=== PATIENT | female | born 1960 ===

== ENCOUNTER 2023-09-06 08:00 | Outpatient (CLI) | payer OTHER | END 2023-09-06 23:59 | disposition home or self-care (01) | LOC: LAB.N 08:00 | PROVIDERS: ATTEND Family Medicine | DX: R30.0 Dysuria (principal) | CPT/HCPCS: 87086; 87181 ==

== ENCOUNTER 2024-03-21 14:11 | Outpatient (CLI) | payer OTHER ==
--- NOTE | 2024-03-21 16:34 | XRAY Report ---
PROCEDURE: Finger(s) RT INDICATIONS: RIGHT FINGER PAIN TECHNIQUE: AP hand, 2 views of the 4th finger(s) acquired. COMPARISON: None. FINDINGS: No acute fracture or dislocation, specifically of the 4th finger distal phalanx. The joint spaces are preserved. IMPRESSION: No acute fracture or dislocation of the right 4th finger. Reviewed by: Zafar Huertas MD on 03/21/2024 4:32 PM PDT Approved by: Zafar Huertas MD on 03/21/2024 4:32 PM PDT Station ID: [id number]
== END 2024-03-21 14:12 | disposition home or self-care (01) ==
LOC: DI 14:11
PROVIDERS: ATTEND Emergency Medicine
DX: M79.644 Pain in right finger(s) (principal)